=== PATIENT | male | born 1980 | race Two or more races ===

== ENCOUNTER 2020-03-29 08:23 | Emergency (ER) | payer OTHER ==
[~2020-03-29] VITALS: Ht 190.5 cm; Wt 113.4 kg
[2020-03-29] MEDS ORDERED: DICLOFENAC SODI75 MG PO (12:02)
== END 2020-03-29 14:42 | disposition home or self-care (01) ==
LOC: ER 08:23
DX: M94.0 Chondrocostal junction syndrome [Tietze] (principal)

== ENCOUNTER 2020-03-31 11:49 | Outpatient (CLI) | payer OTHER ==
[~2020-03-31 11:49] MED LIST: DICLOFENAC SODI75 MG PO
== END 2020-03-31 12:02 | disposition home or self-care (01) ==
LOC: LAB 11:49
PROVIDERS: ATTEND Internal Medicine
DX: I10 Essential (primary) hypertension (principal); M54.5 Low back pain; Z01.810 Encounter for preprocedural cardiovascular examination; E03.8 Other specified hypothyroidism; E78.89 Other lipoprotein metabolism disorders; E55.9 Vitamin D deficiency, unspecified; Z12.11 Encounter for screening for malignant neoplasm of colon

== ENCOUNTER → 2020-04-03 10:31 | Outpatient (CLI) | payer OTHER | END | disposition home or self-care (01) | LOC: LAB 10:31 | PROVIDERS: ATTEND Internal Medicine | DX: I10 Essential (primary) hypertension (principal); M54.5 Low back pain; Z01.810 Encounter for preprocedural cardiovascular examination; E03.8 Other specified hypothyroidism; E78.89 Other lipoprotein metabolism disorders; E55.9 Vitamin D deficiency, unspecified; Z12.11 Encounter for screening for malignant neoplasm of colon ==